=== PATIENT | male | born 1955 | race Two or more races ===

== ENCOUNTER 2016-11-13 16:47 | Emergency (ER) | payer OTHER ==
--- NOTE | 2016-11-13 19:01 | DRSVH ---
PROCEDURE: X-RAY CHEST ONE VIEW, PORTABLE ([id number]) INDICATIONS: chest pain TECHNIQUE: One view of the chest was acquired. COMPARISON: None. FINDINGS: Surgical changes and devices: None. Lungs and pleura: No pleural effusions or pneumothorax. Lungs are clear. Mediastinum: Mediastinal contours appear normal. Heart size is normal. Bones and chest wall: No suspicious bony lesions. Overlying soft tissues appear unremarkable. IMPRESSION: 1. No acute cardiopulmonary disease. Dictated by: Nahun Khalil M.D. on 11/13/2016 at 18:04 Approved by: Nahun Khalil M.D. on 11/13/2016 at 18:04
--- NOTE | 2016-11-13 19:23 | ED.REPORT ---
HPI-General Illness Date of Service November 13, 2016 ED Provider: Rosales Aguila DO The patient is a 61 year old male with history of prior CVA, who was brought to the emergency department by EMS from [facility] for a possible STEMI. The patient started feeling ill around 0930. He experienced chest discomfort, shortness of breath, diaphoresis, bilateral hand tingling, lower extremity "heaviness," nausea and vomiting. Prior to arrival to this emergency department the patient was given nitroglycerin, aspirin, morphine, Zofran, heparin bolus, and he was started on a heparin drip. He denies history of previous cardiac disease. He is not taking any blood thinners. Nursing Notes Stated Complaint: STEMI Nursing Notes Reviewed: Yes General Time Seen by MD: 16:50 Chief Complaint Multip medical complaints Hx Obtained From: Patient, EMS Arrived By: Ambulance Sudden in Onset?: Yes Onset Occurred: 9 - 12 hours ago Symptom Duration: Since onset Location: : Chest Quality: Painful Severity: Current: Moderate Severity: Maximum: Moderate Recent Healthcare: No recent hospitalization Similar Sx Previous: No Past Medical History Past Medical History Notes: No PCP Past Medical History CVA Brain aneurysm Family History Noncontributory Smoking History Unknown if Ever Smoker Ambulatory Status Independent Review of Systems +lower extremity "heaviness" Full Review of Systems Respiratory: Reports: Shortness of breath Cardiovascular: Reports: Chest pain GI: Reports: Nausea, Vomiting Neurologic: Reports: Numbness (hand tingling) Complete sys rev & neg: except as marked. Physical Exam Vital Signs see paper chart Initial VS: Reviewed Head / Eyes: Atraumatic, Normocephalic, PERRL ENT: Mucous membranes moist, Conjunctiva normal, No scleral icterus Neck: Supple, Non-tender, Full range of motion Respiratory: Breath sounds normal, Clear to auscultation, No respiratory distress Cardiovascular: Regular rate & rhythm, Heart sounds normal, Intact distal pulses Abdomen / GI: Soft, Non-tender, No guarding, No rebound, No distention Lymphatic: No lymphadenopathy Extremities: Vascular intact, Neuro intact, No swelling, No tenderness Skin: Warm, Dry, No cyanosis Neurologic: Alert, Oriented, Nonfocal Psychiatric: Mood/affect normal, Behavior normal, Normal thought content General/Constitutional: Awake, Alert, Cooperative Interpretation & Diagnostics Lab Results Interpretation Result Diagram: 11/13/16 1700 11/13/16 1700 Test 11/13/16 17:00 11/13/16 19:48 White Blood Count 5.8th/mm3 (3.8-10.1) Red Blood Count 4.55mil/mm3 (4.40-5.80) Hemoglobin 13.2g/dL (13.8-17.2) Hematocrit 39.8% (41.0-50.0) Mean Corpuscular Volume 87.5fL (81-100) Mean Corpuscular Hemoglobin 29.0pg (27.0-35.0) Mean Corpuscular Hemoglobin Concent 33.2% (32.0-37.0) Red Cell Distribution Width 12.9% (12.3-15.4) Platelet Count 309bil/L (150-400) Neutrophils (%) (Auto) 94% (40-74) Lymphocytes (%) (Auto) 5% (14-46) Monocytes (%) (Auto) 1% (4-12) Eosinophils (%) (Auto) 0% (0-5) Basophils (%) (Auto) 0% (0-3) Activated Partial Thromboplast Time 49.2sec (22.8-33.0) D-Dimer 0.51mg/L FEU (<0.50) Sodium Level 137mEq/L (134-144) Potassium Level 3.7mEq/L (3.5-5.2) Chloride Level 97mEq/L (97-108) Carbon Dioxide Level 23mmol/L (18-29) Blood Urea Nitrogen 26mg/dL (8-27) Creatinine 0.94mg/dL (0.76-1.27) Estimat Glomerular Filtration Rate 86mL/min (>59) Glucose Level 233mg/dL (60-99) Calcium Level 10.2mg/dL (8.5-10.1) Magnesium Level 1.8mg/dL (1.6-2.6) Total Bilirubin 0.3mg/dL (0.0-1.2) Aspartate Amino Transf (AST/SGOT) 18U/L (0-50) Alanine Aminotransferase (ALT/SGPT) 17U/L (0-44) Alkaline Phosphatase 57U/L (25-160) Troponin T < 0.010ug/L (0.0-0.011) Pro-B-Type Natriuretic Peptide 113.9pg/mL (0-210) Total Protein 6.8g/dL (6.4-8.4) Albumin 3.8g/dL (3.4-5.0) Hold Urine Received (Received) ECG Interpretation ECG Interpretation: Normal sinus rhythm with a rate of 51 IVCD RBBB Interpreted by: ED physician X-Ray Chest Interpretation Chest Xray Interpretation: IMPRESSION: 1. No acute cardiopulmonary disease. Dictated by: Nahun Khalil M.D. on 11/13/2016 at 18:04 Interpretation / Wet Read by: Interpret - Radiologist Re-Eval/Medical Decision Med Decision/Clinical Course 61-year-old male with history of CVA and hypertension presents with an episode of diaphoresis, nausea, shortness of breath, and "indigestion" that began around 9:00 this morning and he was at work doing physical labor. He was sent here from [facility] for possible STEMI and was given all the appropriate medications for STEMI including aspirin, nitroglycerin, and heparin bolus/trip. I reviewed the EKG taken at [facility] as well as our EKG here and there is no evidence of ST segment elevation. I consulted with Dr. Murray, our strategy execution consultant for the Facility Maintenance Technician, who notes that the patient's EKGs do not show signs of STEMI. He recommended treatment for non-STEMI if troponins were elevated. There was some initial delay in receiving both the troponin ordered when he arrived here and the troponin from [facility] due to our computer system is going down for 2 hours. However, both of these troponins returned negative. Age-adjusted d-dimer was negative for PE. Patient denies history of diabetes however his glucose is 233 at arrival. The patient stated he felt very well and most of his problems he felt were related to his GI system. He has had ongoing watery diarrhea 3 times daily since July. He is frustrated because he has been to many urgent care and ER visits and has not been able to determine the cause of his symptoms. He also notes an itchy red rash on his arms and neck that is minimally responsive to steroid creams. He receives his blood pressure medication, enalapril from doctors in [facility] and tries to monitor his blood pressure at home. During his ER visit his blood pressures were elevated in the 200/100 range when he initially arrived and patient attributes this to being anxious. Prior to discharge his blood pressure was down at 140/80. I offered admission to the patient for further cardiac monitoring, however given the EKG findings which are negative for STEMI after review with Dr. Murray, and negative troponin 2, nearly 12 hours after symptoms began and plan for close follow-up patient elects to go home. I will see the patient in the clinic early next week and begin evaluation of his ongoing GI symptoms, order a follow-up stress test, and discuss treatment for diabetes which I believe he has. A1c ordered prior to discharge. Patient is agreeable with this plan and he will return if his symptoms change/worsen. Source of Hx: Old records, EMS Time of Eval: 18:46 Re-Evaluation/Progress Note: Complaining of a headache, will order Tylenol. Time of Eval: 20:53 Re-Evaluation/Progress Note: Rechecked the patient. He is currently not in any pain. The patient was frustrated with registration asking him so many questions about his money and insurances, he states he wishes there was more compassion. The patient states he went to [facility] for abdominal pain, heavy breathing, chest pressure, dizziness, diaphoresis, nausea, and vomiting. The patient states after he vomited his symptoms improved. He believes these symptoms were related to eating something different. Over the last several months he has experienced diarrhea and bowel irritation. He was seen for the 5th time for these symptoms yesterday at a clinic in [place]. He was told he may have diverticulitis and was sent home with antibiotics and steroids. He has previously had a colonoscopy years ago that was normal. The patient also reports that he has been under a lot of stress recently. At this time the pressure in his chest has resolved. All of his symptoms have improved. Discussed results, diagnosis, and plan for discharge with the patient. He understands and agrees with plan. All questions were addressed. Consultation : Referral / Consult Name: Hardik Murray MD Consulted With: Cardiology Call Returned at: 17:05 Warehouse Engineer: Agrees with eval, Agrees with plan Note: Reviewed EKGs, does not feel that this is a STEMI. Counseled Regarding: Diagnosis, Lab results, Need for follow-up, When/why to return to ED Discharge & Departure Primary Impression: Chest pressure Additional Impressions: Nausea & vomiting Vomiting type: unspecified Vomiting Intractability: unspecified Qualified Code: R11.2 - Nausea with vomiting, unspecified Diarrhea Diarrhea type: unspecified type Qualified Code: R19.7 - Diarrhea, unspecified Hyperglycemia Hypertensive urgency Ruled Out: Acute coronary syndrome, Pulmonary embolus Disposition: Home Discharge Condition All VS Reviewed: Yes Condition: Stable Additional Instructions: Thank you for entrusting us with your care today. Your workup today included: blood work. EKG, and a chest x-ray. Your results are reassuring. I do not believe these symptoms were related to your heart. Continue to take the antibiotics that you were prescribed yesterday at urgent care. I think you will benefit from seeing a primary doctor. This way you are seeing the same person every time which will alleviate any confusion. You can come and see me at the clinic in [place]. Call the office on Wednesday to schedule an appointment for next week. Please return to the emergency department for any new or concerning symptoms. Referrals: Rosales Aguila Attestation Portions of this note were transcribed by Brittny Posey. I, Dr. Aguila personally performed the history, physical exam and medical decision-making; I reviewed and confirmed the accuracy of the information in the transcribed note. Signed by: Herbert Esquivel, 11/13/2016 at 2200. copies to: Rosales Aguila Gary R DO November 13, 2016 19:23 Brittny Posey November 13, 2016 19:26
[2016-11-13 19:59] LABS: Magnesium 1.8 mg/dL (1.6-2.6); TROPONIN T < 0.010 ug/L (0.0-0.011)
[2016-11-13 20:02] LABS: D-Dimer 0.51 mg/L FEU (<0.50)
[2016-11-13 20:19] LABS: BASOPHILS % (AUTO) 0 % (0-3); EOSINOPHILS % (AUTO) 0 % (0-5); MONOCYTES % (AUTO) 1 % (4-12); Mean Corpuscular Volume 87.5 fL (81-100); NEUTROPHILS % (AUTO) 94 % (40-74); Platelet Count 309 bil/L (150-400)
== END 2016-11-13 22:13 | disposition home or self-care (01) ==
LOC: SED 16:47
DX: R07.89 Other chest pain (principal); I16.0 Hypertensive urgency; R73.9 Hyperglycemia, unspecified; R19.7 Diarrhea, unspecified; R11.2 Nausea with vomiting, unspecified; Z86.73 Personal history of transient ischemic attack (TIA), and cerebral infarction without residual deficits